=== PATIENT | male | born 2000 | race Caucasian/White ===

== ENCOUNTER 2018-10-25 19:15 | Emergency (ER) | payer OTHER, MEDICAID ==
[2018-10-25 19:30] VITALS: BP 152/89
[2018-10-25] MEDS ORDERED: TDAP ADULT 0.5 ML INJ (BOOSTRIX) IM ONE (19:34)
[2018-10-25] MEDS ORDERED: IBUPROFEN 600 MG TAB PO ONE (19:36)
--- NOTE | 2018-10-25 19:37 | EDPHY ---
H & P Time Seen by Provider: 10/25/18 19:36 HPI/ROS: Chief complaint. Finger laceration HPI. 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 He was holding the onion in his left hand in the knife in his right hand. The onion slipped and patient sustained lacerations to the palmar surfaces of left fingers 2 and 3. He is right handed. Bleeding is not well controlled currently. He has had previous injury to his left hand from previous knife injury with some numbness to 2 of his fingers as a residual. He does not have any other current injuries. He is not current on his tetanus immunization ROS 10 systems were reviewed and negative with the exception of the elements mentioned in the history of present illness Past Medical/Surgical History: Hypothyroid, insulin-dependent diabetes Social History: Single, nonsmoker, no alcohol Smoking Status: Never smoked Physical Exam: General Appearance: Alert pleasant well-developed male mild distress vital signs stable Eyes: Pupils equal and round no pallor or injection. ENT, Mouth: Mucous membranes are moist. Respiratory: There are no retractions, lungs are clear to auscultation. Cardiovascular: Regular rate and rhythm. Gastrointestinal: Abdomen is soft and nontender, no masses, bowel sounds normal. Neurological: Awake and alert, sensory and motor exams grossly normal. Skin: Warm and dry, no rashes. Musculoskeletal: Neck is supple nontender. Extremities avulsion type lacerations to the finger pads of left fingers 2 and 3. No remaining tissue to be sutured. The avulsion laceration on the pad of the finger 2 is about 0.5 x 0.75 cm. The avulsion laceration on the pad of finger 3 is about 0.25 x 0.5 cm in size. No foreign body. Distal motor vascular sensitivity is intact Psychiatric: Patient is oriented X 3, there is no agitation. Constitutional: Initial Vital Signs Temperature (C) 36.9 C 10/25/18 19:25 Heart Rate 104 H 10/25/18 19:25 Respiratory Rate 16 10/25/18 19:25 Blood Pressure 152/89 H 10/25/18 19:25 O2 Sat (%) 99 10/25/18 19:25 O2 Delivery Mode Room Air Allergies/Adverse Reactions: No Known Allergies Allergy (Unverified 10/25/18 19:24) Home Medications: Medication Instructions Recorded Levothyroxine 10/25/18 novoLOG 10/25/18 Medical Decision Making Procedures: Lat is applied to the wounds. Surgicel is applied to the wounds after cleaning ED Course/Re-evaluation: Re-evaluation 8:10 p.m.. The bleeding and pain or controlled after the Lat has been applied. Surgicel is applied. Tube gauze is applied over the Surgicel Patient and I discussed treatment plan including criteria for return and importance of follow-up and further evaluation. He expresses understanding and agreement Differential Diagnosis: Avulsion laceration to fingers 2 and 3 of left hand. There is no tissue remaining for sutures. No evidence of retained foreign body. - Data Points Medications Given: Discontinued Medications Diphtheria/Tetanus/Acell Pertussis (Boostrix) 0.5 ml IM .ONCE ONE Stop: 10/25/18 19:35 Last Admin: 10/25/18 19:47 Dose: 0.5 ml Ibuprofen (Motrin) 600 mg PO EDNOW ONE Stop: 10/25/18 19:37 Last Admin: 10/25/18 19:50 Dose: 600 mg Tetracaine/Epinephrine/Lidocaine (Let Gel Topical) 1 ea TP EDNOW ONE Stop: 10/25/18 19:44 Last Admin: 10/25/18 19:49 Dose: 1 ea Departure - Departure Disposition: Home, Routine, Self-Care Clinical Impression: Laceration Condition: Good Instructions: Laceration Without Closure (ED) Additional Instructions: Remove the tube gauze and Surgicel tomorrow morning. Sometimes the Surgicel can stick to the wound and if that is the case so care fingers in a glass of warm water for about 20 min in gently tease the Surgicel off. Gentle cleaning each morning with washcloth and water. Then apply antibiotic ointment and bandages. Otherwise keep the cuts clean and dry. Return for signs of infection Re-evaluation by workman's Comp in 2-3 days. No work until re-evaluation by workman's Comp Referrals: NONE *PRIMARY CARE P,. [Primary Care Provider] - As per Instructions Work Comp Referral [facility] [Outside] - 2-3 days without fail Stand Alone Forms: Work Excuse
[2018-10-25] MEDS ORDERED: LET GEL TOPICAL 1 EA SYR TP ONE (19:43)
== END 2018-10-25 20:35 | disposition home or self-care (01) ==
LOC: CED 19:15
DX: S61.211A Laceration without foreign body of left index finger without damage to nail, initial encounter (principal); S61.213A Laceration without foreign body of left middle finger without damage to nail, initial encounter; E11.9 Type 2 diabetes mellitus without complications; W26.0XXA Contact with knife, initial encounter; Y93.G1 Activity, food preparation and clean up; Z23 Encounter for immunization; Y99.0 Civilian activity done for income or pay; Z79.4 Long term (current) use of insulin
CPT/HCPCS: 90471-ER; 99283-ER